=== PATIENT | male | born 1995 | race American Indian/Alaskan Native ===

== ENCOUNTER 2018-01-04 13:30 | Emergency (ER) | payer SELFPAY ==
[2018-01-04 13:36] VITALS: BP 117/73
--- NOTE | 2018-01-04 15:37 | Emergency Department Report ---
[facility] Chief Complaint: Eye Problems Stated Complaint: PINK EYE Time Seen by Provider: 01/04/18 15:23 Duration: 2 Days Side: Right Severity: mild Symptoms: Yes Eye Itching, Yes Eye Redness, No Eye Pain, No Mucous Drainage, No Purulent Drainage, No Blurred Vision, No Preceding URI, No H/O Allergic Rhinitis , No Contact Lens Use, No Trauma, No Fever, No Headache Other History: This is a 22-year-old male nontoxic, well nourished in appearance , no acute signs of distress presents to the ED with c/o of right eye redness, itching and crusting 2 days. Patient denies any eye pain. Patient denies any headache, stiff neck, numbness, tingling, fever, chills, nausea, vomiting. She denies foreign body sensation. Patient denies any visual changes or decreased vision. Denies any allergies or significant past medical history. ED Review of Systems ROS: Stated complaint: PINK EYE Other details as noted in HPI Constitutional: denies: chills, fever Eyes: denies: eye pain, eye discharge, vision change ENT: denies: ear pain, throat pain Respiratory: denies: cough, shortness of breath, wheezing Cardiovascular: denies: chest pain, palpitations Endocrine: no symptoms reported Gastrointestinal: denies: abdominal pain, nausea, diarrhea Genitourinary: denies: urgency, dysuria Musculoskeletal: denies: back pain, joint swelling, arthralgia Skin: denies: rash, lesions Neurological: denies: headache, weakness, paresthesias Psychiatric: denies: anxiety, depression Hematological/Lymphatic: denies: easy bleeding, easy bruising ED Past Medical Hx - Past Medical History Previous Medical History?: No - Surgical History Past Surgical History?: No - Social History Smoking Status: Never Smoker Substance Use Type: Marijuana - Medications Home Medications: Home Medications Medication Instructions Recorded Confirmed Last Taken Type Polymyxin B Sulf/Trimethoprim 2 drops OD TID #1 drops 01/04/18 Unknown Rx [Polytrim Eye Drops] [facility] Exam - Exam General: Vital signs noted. No distress. Alert and acting appropriately. Eye Exam: Neither Injection, Neither Chemosis, Neither Abnormal Pupil, Neither EOMI, Neither Eye Foreign Body, Neither Lid Foreign Body, Neither Mucous Discharge, Neither Purulent Discharge, Neither Fluorescein Uptake, Neither Fluorescein Uptake (slit lamp), Neither Cell/Flare (slit lamp), Neither Corneal Edema, Neither Photophobia HEENT: No Nasal Congestion, No Pharyngeal Erythema Remainder of HEENT: Normal Lungs: Yes Clear Lung Sounds, Yes Good Air Exchange, No Wheezes, No Stridor, No Cough, No Nasal Flaring, No Retractions, No Use of Accessory Muscles Exam: Visual acuity: Left eye: 20/20. Right eye: 20/20 ED Course Vital Signs 01/04/18 13:34 Temperature 97.9 F Pulse Rate 69 Respiratory 16 Rate Blood Pressure 117/73 O2 Sat by Pulse 100 Oximetry - Reevaluation(s) Reevaluation #1: 01/04/18 15:35 Patient is speaking in full sentences with no signs of distress noted. Critical care attestation.: If time is entered above; I have spent that time in minutes in the direct care of this critically ill patient, excluding procedure time. ED Disposition Clinical Impression: Conjunctivitis, right eye Qualifiers: Conjunctivitis type: acute Acute conjunctivitis type: bacterial Qualified Code( s): H10.31 - Unspecified acute conjunctivitis, right eye Disposition: DC-01 TO HOME OR SELFCARE Is pt being admited?: No Does the pt Need Aspirin: No Condition: Stable Instructions: Conjunctivitis (ED) Additional Instructions: Follow-up with a primary care doctor in 3-5 days or if symptoms worsen and continue return to emergency room as soon as possible. Prescriptions: Polymyxin B Sulf/Trimethoprim [Polytrim Eye Drops] 2 drops OD TID #1 drops Referrals: PRIMARY CAREMD [Primary Care Provider] - 3-5 Days FIDENCIO GALLO MD [Staff Physician] - 3-5 Days TREASURE KIRKLAND MD [Staff Physician] - 3-5 Days [facility] [Outside] - 3-5 Days Forms: Work/School Release Form(ED)
== END 2018-01-04 15:47 | disposition home or self-care (01) ==
LOC: ED 13:30
DX: H10.31 Unspecified acute conjunctivitis, right eye (principal); F12.10 Cannabis abuse, uncomplicated
CPT/HCPCS: 99282